=== PATIENT | female | born 1975 | race Caucasian/White ===

== ENCOUNTER 2019-05-06 13:19 | Emergency (ER) | payer SELFPAY ==
[2019-05-06 13:30] VITALS: BP 148/85; PULSE 114; RESP 18; TEMP 38.7; O2SAT 99
--- NOTE | 2019-05-06 13:30 | ED.GENADULT ---
HPI - General Adult General Chief complaint: Upper Respiratory Infection Stated complaint: Flu like sx Time Seen by Provider: 05/06/19 13:45 Source: patient and RN notes reviewed Mode of arrival: ambulatory Limitations: no limitations History of Present Illness HPI narrative: This is a 44 years old female presents to the office for an evaluation of flu likes symptoms for two days. Symptoms began on Sat morning with feverish feeling. Associated with runny nose, and little cough. She took ibuprofen at around 6am this morning. She had influenza B a couple months ago; she did not take the Tamiflu because her symptom was longer than 3 days. She did receive influenza vaccine. She also mentioned that every time she get influenza vaccine she tends to get flu. Denies sick contact at home; however she works at the [employer] as an [employer]. Related Data Allergies Allergy/AdvReac Type Severity Reaction Status Date / Time No Known Allergies Allergy Verified 05/06/19 13:38 Review of Systems Review of Systems: Narrative: CONSTITUTIONAL: Reports fever, generalize bodyache ENT: Reports rhinorrhea, congestion, sore throat. Denies otalgia. CARDIOVASCULAR: Denies chest pain, palpitation RESPIRATORY: Denies dyspnea, wheezing GASTROINTESTINAL: Denies abdominal pain, nausea, vomiting, diarrhea. GENITOURINARY: Denies urinary symptoms or discharge SKIN: Denies rash MUSCULOSKELETAL: Denies acute back pain NEUROLOGIC: Denies lightheaded PMFSH Social History Social History (Updated 05/06/19 @ 13:55 by SEAN Alva) Smoking status: Current every day smoker Comments At time of signature, I agree with nursing past medical, surgical, social and family history. There is no relevant family history pertinent to the presenting complaint. Exam Narrative: Exam Narrative: GENERAL: This is a well-nourished, well-developed patient, ill apparent but not in acute distress. EYES: Sclera clear/white. Vision is grossly intact. EARS: External ears normal, auditory canals clear and without drainage, TMs normal without perforation. Hearing grossly intact. NOSE: External nose normal with no obvious nasal discharge, nares without redness, no rhinorrhea. THROAT: Mucous membranes moist, posterior pharynx clear. NECK: Neck supple, non-tender without lymphadenopathy, masses or thyromegaly. CARDIOVASCULAR: Regular rate and rhythm without murmurs, gallops, or rubs. RESPIRATORY: Clear to auscultation. Breath sounds equal bilaterally. No wheezes, rales, or rhonchi. GASTROINTESTINAL: Abdomen soft, non-tender, nondistended. Bowel sounds are active. No hepato-splenomegaly, or palpable masses. No guarding. SKIN: warm, intact with no suspicious lesions or rash, good texture and turgor. NEURO: awake, alert, and oriented to person, place and time. There were no obvious focal neurologic abnormalities. Steady gait [place] Coma Scale Eye Opening: Spontaneous 4 [place] Coma Scale Motor: Obeys Commands 6 [place] Coma Scale Verbal: Oriented 5 Course Vital Signs Vital signs: Vital Signs Temperature 101.7 F H 05/06/19 13:30 Pulse Rate 114 H 05/06/19 13:30 Respiratory Rate 18 05/06/19 13:30 Blood Pressure 148/85 H 05/06/19 13:30 Pulse Oximetry 99 05/06/19 13:30 Temperature 101.7 F H 05/06/19 13:30 Pulse Rate 114 H 05/06/19 13:30 Respiratory Rate 18 05/06/19 13:30 Blood Pressure 148/85 H 05/06/19 13:30 Pulse Oximetry 99 05/06/19 13:30 Medical Decision Making MDM Narrative Medical decision making narrative: Elevated BP noted: patient is informed that they may have pre-hypertension or hypertension based on a blood pressure reading in the department. I recommend the patient call the primary care provider listed on their discharge instructions or a physician of their choice this week to arrange follow-up for further evaluation of possible pre-hypertension or hypertension within 1-2week. Discharge instructions reviewed with patient, as well as
== END 2019-05-06 13:50 | disposition home or self-care (01) ==
PROVIDERS: Emergency Provider Nurse Practitioner; PCP Internal Medicine
DX: J10.1 Influenza due to other identified influenza virus with other respiratory manifestations (principal); F17.200 Nicotine dependence, unspecified, uncomplicated
CPT/HCPCS: 87804; 99203; G0463